=== PATIENT | male | born 1990 | race Caucasian/White ===

== ENCOUNTER 2016-08-20 23:19 | Emergency (ER) | payer SELFPAY ==
[~2016-08-20] VITALS: Ht 167.6 cm; Wt 66.5 kg
[2016-08-20 23:21] VITALS: BP 107/68
[2016-08-21 00:03] LABS: HEMOGLOBIN 14.8 g/dL (13.7-18.0)
[2016-08-21 00:14] LABS: ASPARTATE AMINO TRANSFERASE 17 U/L (15-37); BLOOD UREA NITROGEN 14 mg/dL (7-18)
== END 2016-08-21 00:37 | disposition home or self-care (01) ==
LOC: ED 23:59
DX: K62.5 Hemorrhage of anus and rectum (principal); F12.10 Cannabis abuse, uncomplicated
CPT/HCPCS: 36415; 80053; 85025; 86850; 86900; 99284

== ENCOUNTER 2016-09-10 14:40 | Emergency (ER) | payer SELFPAY ==
[~2016-09-10] VITALS: Ht 170.2 cm; Wt 68.1 kg
[2016-09-10 14:44] VITALS: BP 138/79
== END 2016-09-10 15:40 | disposition home or self-care (01) ==
LOC: ED 15:14
DX: S02.2XXA Fracture of nasal bones, initial encounter for closed fracture (principal); S06.9X0A Unspecified intracranial injury without loss of consciousness, initial encounter; X58.XXXA Exposure to other specified factors, initial encounter; Y93.89 Activity, other specified; Y99.8 Other external cause status; Y92.009 Unspecified place in unspecified non-institutional (private) residence as the place of occurrence of the external cause
CPT/HCPCS: 70160